=== PATIENT | female | born 1945 | race Caucasian/White ===

== ENCOUNTER → 2016-12-19 | Day surgery (SDC) | payer MEDICARE, OTHER ==
[~2016-12-19] VITALS: Ht 170.2 cm; Wt 108.9 kg
[~2016-12-19] MED LIST: 0.9% Sodium Chloride 1,000 ML IV SCH; ACET125T3 PO; FLUT9.9S NS; HYDR25TA4 PO; PARO20TA5 PO; POTA20TA16 PO; PRIM50TA PO; PROP20TA5 PO; ROB500 PO; Sodium Chloride LOK Flush 10 mL Syringe IV PRN; WARF10TA PO; WARF10TA4 PO; fentaNYL-PF 50 mCg/mL 2 mL Inj IVPUSH PRN
[2016-12-19 13:30] VITALS: BP 155/88; PULSE 62; RESP 14; O2SAT 96
--- NOTE | 2016-12-19 14:34 | PCM.ENDCOL ---
Colonoscopy Date of Service: Dec 19, 2016 Physician Ben Robison MD Indication for Procedure History of polyp and diarrhea Post Procedure Dx & Findings: Polyps hemorrhoids AVMs Procedure Colonoscopy PROCEDURE IN DETAIL: Prep fair Withdrawal time 15 minutes After unremarkable rectal examination the Olympus video colonoscope was inserted patient's anal canal and was advanced to cecum. Landmarks were identified including the ileocecal valve and appendiceal orifice. Scope further events the terminal ileum. Advanced 10 cm. Visualized terminal ileum show normal villous structures without any ulcer mass or erosions. Scope was withdrawn systematically. Visualized colonic mucosa showed healthy shiny mucosa with normal healthy-appearing vasculature. In the cecum, there was a 1 cm flat polyp which was removed completely using cold snare. 2 resolution clip deployment and sealed off the defect. He was also less than 1 mm polyp in the cecum which was removed completely using cold forceps. Random biopsies are obtained from the cecum to the rectum. This is for the workup of diarrhea. In the rectum retroflexion was done which showed hemorrhoids. Anal canal was inspected carefully on the way out and hemorrhoids noted. Impression Fair prep Polyp 2 the largest 1 cm status post complete removal Normal TI Hemorrhoids Recommendation Repeat colonoscopy in 2 years Polyp GI clinic Presedation Assessment Risks and Benefits Informed consent was obtained from the patient after all risks and benefits including but not limited to drug reaction, infection, pain, bleeding, perforation, as well as alternatives were discussed. Patient monitoring Continuous pulse oximetry, cardiac monitoring, blood pressure monitoring, IV access, and oxygen at 2L per nasal cannula. Periprocedural Fentanyl: Fentanyl 100mcg Incrementally Midazolam: Midazolam 4mg Incrementally Complications There were no periprocedural complications identified. Post Procedure Plan Post Procedure Recommendations 1. Restrict activities today. 2. Resume normal activities in the morning. 3. Resume medications. 4. Patient informed of normal post procedure side effects as bloating, drowsiness, blood streaking in the stool. 5. average risk CRCS. If colon polyps come back as: -Hyperplastic- can repeat colonoscopy in 10 years -Tubular adenoma- repeat colonoscopy in 5 years -Tubulovillous/villous adenoma- repeat colonoscopy in 3 years -If any dysplasia- return to clinic as soon as possible 6. Please don't hesitate to call me with any questions. Ben Robison MD Dec 19, 2016 14:34
[2016-12-19 14:37] VITALS: BP 160/91; PULSE 60; RESP 14; O2SAT 95
[2016-12-19 14:51] VITALS: BP 148/75; PULSE 72; RESP 14; O2SAT 94
[2016-12-19 14:55] VITALS: BP 141/76; PULSE 65; RESP 14; O2SAT 95
--- NOTE | 2016-12-25 11:30 | PATH ---
SURGICAL PATHOLOGY Attending Physician:Ben Robison M.D. CASE STATUS: Signed Out PATIENT NAME: BELINDA HERNANDEZ PID: [id number] : 1945 DATE COLLECTED:12/19/2016 00:00 SPECIMEN: 1: Colon, Polyp 2: Colon, Biopsy CLINICAL HISTORY: DIARRHEA 1). CECAL POLYPS X 2 2). RANDOM COLON BIOPSY FINAL DIAGNOSIS: 1.CECUM, POLYPS, BIOPSIES: SESSILE SERRATED ADENOMAS. 2.RANDOM COLON, BIOPSIES: COLONIC MUCOSA WITH NO DIAGNOSTIC ABNORMALITY. Negative for active, chronic and microscopic colitis. Negative for dysplasia and malignancy. ICD10 D12.0 GROSS DESCRIPTION: The specimen is received in two formalin filled containers labeled with the patient's name. 1). The specimen is labeled "cecal polyps" and consists of 4 portions of tissue which aggregate to 0.7 x 0.5 x 0.3 CM. The specimen is entirely submitted in cassette 1A. 2). The specimen is labeled "random colon" and consists of multiple portions of tissue which aggregate to 0.4 x 0.4 x 0.2 CM. The specimen is entirely submitted in cassette 2A. 12/20/2016DC MICRO DESCRIPTION: See diagnosis. ICD-9 CODES: CPT CODES: 1: 10064 2: 92023 Electronically Signed Out Taryn Barth MD [facility] [address], [place] [address] Technical component performed at [facility], [address] [place] [address] Ave[address], [place], [address]
== END | disposition home or self-care (01) ==
LOC: END 08:27
PROVIDERS: ATTEND Internal Medicine
DX: Z12.11 Encounter for screening for malignant neoplasm of colon (principal); D12.0 Benign neoplasm of cecum; K64.8 Other hemorrhoids; Q27.33 Arteriovenous malformation of digestive system vessel; I10 Essential (primary) hypertension; F32.9 Major depressive disorder, single episode, unspecified; D68.51 Activated protein C resistance; R25.1 Tremor, unspecified; Z79.01 Long term (current) use of anticoagulants
CPT/HCPCS: 45380; 45385; 88305; 99153; G0500; J2250; J3010; J7030